=== PATIENT | female | born 1985 | race Asian ===

== ENCOUNTER 2017-10-11 07:40 | Inpatient (IN) | payer OTHER ==
[~2017-10-11] VITALS: Ht 157.5 cm; Wt 85.4 kg
[~2017-10-11 07:40] MED LIST: IBUP-1223 PO; OXYC-302 PO; PREN1TAB60 PO
[2017-10-11] MEDS: LACTATED RINGERS 1,000 ML IV SCH ×5 (09:52→23:11)
[2017-10-11] MEDS ORDERED: SODIUM CITRATE/CITRIC ACID 30 ML UDC PO ONE (10:00)
[2017-10-11] MEDS ORDERED: METOCLOPRAMIDE 5 MG/ML, 2ML IV ONE (10:00)
[2017-10-11] MEDS ORDERED: PLEASE ENTER HEIGHT AND WEIGHT MC SCH (10:00)
[2017-10-11] MEDS ORDERED: LACTATED RINGERS 1,000 ML IVBOLUS ONE (10:00)
[2017-10-11] MEDS ORDERED: ONDANSETRON 2MG/ML, 2ML IVPush ONE (10:00)
[2017-10-11 10:20] VITALS: BP 121/74
[2017-10-11 10:31] LABS: BASOPHILS # (AUTO) 0.03 x10^3/uL (0-0.1); BASOPHILS % (AUTO) 0 % (0-1); EOSINOPHILS # (AUTO) 0.05 x10^3/uL (0-0.4); EOSINOPHILS % (AUTO) 1 % (1-7); LYMPHOCYTES # (AUTO) 1.77 x10^3/uL (1-3.4); LYMPHOCYTES % (AUTO) 19 % (22-44); MD NO; MEAN CORPUSCULAR HEMOGLOBIN 19.9 pg (27.0-34.8); MEAN CORPUSCULAR HGB CONC 31.1 g/dL (32.4-35.8); MEAN CORPUSCULAR VOLUME 64.1 fL (80-100); MEAN PLATELET VOLUME 8.9 fL (7.4-10.4); MONOCYTES # (AUTO) 0.86 x10^3/uL (0.2-0.8); MONOCYTES % (AUTO) 9 % (2-9); NEUTROPHILS # (AUTO) 6.76 x10^3/uL (1.8-6.8); NEUTROPHILS % (AUTO) 72 % (42-75); PLATELET COUNT 296 x10^3/uL (130-400); RED BLOOD COUNT 5.54 x10^6/uL (3.82-5.3); RED CELL DISTRIBUTION WIDTH 18.1 % (9.6-15.2)
[2017-10-11] MEDS ORDERED: morphine SULFATE/PF 0.5 MG/ML, 10ML ONE (10:59)
[2017-10-11] MEDS ORDERED: METOCLOPRAMIDE 5 MG/ML, 2ML ONE (11:05)
[2017-10-11] MEDS ORDERED: NEWBORN KIT ONE ×2 (11:05→11:24)
[2017-10-11] MEDS ORDERED: SODIUM CITRATE/CITRIC ACID 30 ML UDC ONE (11:05)
[2017-10-11] MEDS ORDERED: OXYTOCIN 30U/ 0.9% NaCL 500ML 500 ML ONE (11:06)
[2017-10-11] MEDS: OXYTOCIN 30U/ 0.9% NaCL 500ML 500 ML IV SCH ×3 (15:11→19:52)
[2017-10-11] MEDS ORDERED: morphine SULFATE 10 MG/ML, 1ML IVPush PRN (15:30)
[2017-10-11] MEDS ORDERED: MISOPROSTOL 200 MCG TABLET PO PRN (15:30)
[2017-10-11] MEDS ORDERED: ONDANSETRON 2MG/ML, 2ML IV PRN (15:30)
[2017-10-11] MEDS ORDERED: ACETAMINOPHEN 325 MG TABLET PO PRN (15:30)
[2017-10-11] MEDS ORDERED: ONDANSETRON 2MG/ML, 2ML ONE ×2 (15:32→16:00)
[2017-10-11] MEDS ORDERED: CEFAZOLIN 1,000 MG ONE (15:32)
[2017-10-11] MEDS ORDERED: OXYTOCIN 10 UNITS/ML, 1ML ONE (15:32)
[2017-10-11] MEDS ORDERED: WATER-INJECTION,STERILE 10 ML IV ONE (15:32)
[2017-10-11] MEDS ORDERED: EPHEDRINE 50 MG/ML, 1ML ONE (15:32)
[2017-10-11] MEDS ORDERED: PHENYLEPHRINE 10 MG/ML ONE (15:32)
[2017-10-11] MEDS ORDERED: OXYcodone/APAP 5/325MG TABLET ONE (17:46)
[2017-10-11] MEDS: OXYcodone/APAP 5/325MG TABLET PO PRN ×2 (17:49→23:45)
[2017-10-11 19:30] VITALS: BP 123/70
[2017-10-11 20:30] VITALS: BP 114/72
[2017-10-11] MEDS: KETOROLAC 30 MG/1 ML IV SCH (21:04)
[2017-10-11] MEDS ORDERED: DIPH,PERTUSS(ACELL),TET VAC/PF NC IM-VACC ONE (21:30)
[2017-10-12 00:13] VITALS: BP 109/69
[2017-10-12] MEDS: LACTATED RINGERS 1,000 ML IV SCH ×3 (01:11→07:11)
[2017-10-12] MEDS: OXYTOCIN 30U/ 0.9% NaCL 500ML 500 ML IV SCH ×2 (01:11→05:52)
[2017-10-12] MEDS: KETOROLAC 30 MG/1 ML IV SCH ×5 (03:13→22:19)
[2017-10-12 04:01] VITALS: BP 104/68
[2017-10-12 05:04] LABS: BASOPHILS # (AUTO) 0.02 x10^3/uL (0-0.1); BASOPHILS % (AUTO) 0 % (0-1); EOSINOPHILS # (AUTO) 0.06 x10^3/uL (0-0.4); EOSINOPHILS % (AUTO) 1 % (1-7); LYMPHOCYTES # (AUTO) 1.46 x10^3/uL (1-3.4); LYMPHOCYTES % (AUTO) 12 % (22-44); MD NO; MEAN CORPUSCULAR HEMOGLOBIN 20.5 pg (27.0-34.8); MEAN CORPUSCULAR HGB CONC 31.6 g/dL (32.4-35.8); MEAN CORPUSCULAR VOLUME 64.8 fL (80-100); MEAN PLATELET VOLUME 8.7 fL (7.4-10.4); MONOCYTES # (AUTO) 1.24 x10^3/uL (0.2-0.8); MONOCYTES % (AUTO) 10 % (2-9); NEUTROPHILS # (AUTO) 9.42 x10^3/uL (1.8-6.8); NEUTROPHILS % (AUTO) 77 % (42-75); PLATELET COUNT 248 x10^3/uL (130-400); RED BLOOD COUNT 4.48 x10^6/uL (3.82-5.3); RED CELL DISTRIBUTION WIDTH 17.5 % (9.6-15.2)
[2017-10-12] MEDS ORDERED: DIPH,PERTUSS(ACELL),TET VAC/PF NC IM-VACC ONE (08:15)
[2017-10-12] MEDS: DOCUSATE 100 MG CAPSULE PO PRN ×2 (08:16→22:19)
[2017-10-12] MEDS: PRENATAL VIT/IRON/FA 1 EACH TABLET PO SCH (08:16)
[2017-10-12] MEDS: OXYcodone IR 5MG TABLET PO PRN ×4 (08:16→22:20)
[2017-10-12 08:22] VITALS: BP 113/67
[2017-10-12 12:45] VITALS: BP 111/63
[2017-10-12 19:45] VITALS: BP 124/79
[2017-10-13] MEDS: OXYcodone IR 5MG TABLET PO PRN ×4 (02:23→20:25)
[2017-10-13] MEDS: KETOROLAC 30 MG/1 ML IV SCH ×2 (04:34→11:02)
[2017-10-13] MEDS: PRENATAL VIT/IRON/FA 1 EACH TABLET PO SCH (08:31)
[2017-10-13] MEDS: FERROUS SULFATE 325 MG TABLET PO SCH ×2 (08:31→16:48)
[2017-10-13] MEDS: DOCUSATE 100 MG CAPSULE PO PRN ×2 (08:31→20:25)
[2017-10-13 08:35] VITALS: BP 122/76
[2017-10-13] MEDS: IBUPROFEN 600 MG TABLET PO PRN ×2 (15:49→22:07)
[2017-10-13 19:53] VITALS: BP 125/76
[2017-10-14] MEDS: OXYcodone IR 5MG TABLET PO PRN ×2 (01:45→05:47)
[2017-10-14] MEDS: IBUPROFEN 600 MG TABLET PO PRN ×2 (05:47→10:00)
[2017-10-14] MEDS ORDERED: DOCU-131 PO (07:11)
[2017-10-14] MEDS ORDERED: FERR325T23 PO (07:11)
[2017-10-14] MEDS ORDERED: OXYC-302 PO (07:13)
[2017-10-14] MEDS: FERROUS SULFATE 325 MG TABLET PO SCH (10:00)
[2017-10-14] MEDS: DOCUSATE 100 MG CAPSULE PO PRN (10:00)
[2017-10-14] MEDS: PRENATAL VIT/IRON/FA 1 EACH TABLET PO SCH (10:00)
== END 2017-10-14 11:15 | disposition home or self-care (01) | DRG 766 ==
LOC: LDIP 09:50 → 2NW 18:43
PROVIDERS: ADMIT Obstetrics & Gynecology; ATTEND Obstetrics & Gynecology
PROC: 0UB70ZZ Excision of Bilateral Fallopian Tubes, Open Approach (ICD-10-PCS; principal; 2017-10-14)
PROC: 10D00Z1 Extraction of Products of Conception, Low, Open Approach (ICD-10-PCS; 2017-10-14)
DX: O34.211 Maternal care for low transverse scar from previous cesarean delivery (principal); O9A.22 Injury, poisoning and certain other consequences of external causes complicating childbirth; S62.609A Fracture of unspecified phalanx of unspecified finger, initial encounter for closed fracture; Z37.0 Single live birth; Z30.2 Encounter for sterilization; Z3A.39 39 weeks gestation of pregnancy
CPT/HCPCS: 36415; 85025; 86850; 86900; 88302; J0690; J1885; J2274; J2405; J2370; J2590; J2765; J7120